=== PATIENT | female | born 1930 | race Hispanic/Latino ===

== ENCOUNTER 2021-06-24 11:46 | Inpatient (IN) | payer OTHER ==
[~2021-06-24] VITALS: Ht 160 cm; Wt 61.2 kg
[2021-06-24] MEDS ORDERED: ASPIRIN 81 MG CHEW TAB PO ONE (12:30)
[2021-06-24 13:03] LABS: BASOPHILS # (AUTO) 0.1 (0.0-0.1); BASOPHILS % 1.1 % (0.0-1.0); EOSINOPHILS # (AUTO) 0.3 (0.0-0.4); EOSINOPHILS % 4.6 % (0.0-6.0); HEMATOCRIT 40.1 % (34.2-44.1); HEMOGLOBIN 12.9 g/dL (12.0-16.0); LYMPHOCYTES # (AUTO) 2.6 (1.0-3.2); MEAN CORPUSCULAR HGB CONC 32.2 g/dL (31-35); MEAN CORPUSCULAR VOLUME 99.5 fL (81-99); MONOCYTES # (AUTO) 0.8 (0.2-0.8); NEUTROPHILS # (AUTO) 3.1 (2.1-6.9); NEUTROPHILS % 44.9 % (38.7-80.0); PLATELET COUNT 274 x10e3/uL (140-360); RED BLOOD COUNT 4.03 x10e6/uL (3.6-5.1); RED CELL DISTRIBUTION WIDTH 12.7 % (11.7-14.4)
[2021-06-24 13:16] LABS: ALBUMIN 3.8 g/dL (3.5-5.0); ALBUMIN/GLOBULIN RATIO 1.2 (0.8-2.0); ANION GAP 14.1 mmol/L (8-16); CALCIUM 9.1 mg/dL (8.4-10.2); CREATININE, SERUM 0.95 mg/dL (0.57-1.11); POTASSIUM 4.1 mmol/L (3.5-5.1)
[2021-06-24 13:25] LABS: CREATINE KINASE MB 1.6 ng/mL (0-5.0)
[2021-06-24] MEDS ORDERED: DILTIAZEM HCL 30 MG TAB PO ONE (14:15)
[2021-06-24] MEDS ORDERED: DILTIAZEM HCL 5 MG/ML 5 ML VIAL IV ONE (15:00)
[2021-06-24 18:54] LABS: CLARITY,URINE CLEAR (CLEAR); COLOR,URINE YELLOW (YELLOW); KETONES,URINE NEGATIVE (NEGATIVE); LEUKOCYTE ESTERASE ,URINE NEGATIVE (NEGATIVE); NITRITE,URINE NEGATIVE (NEGATIVE); PROTEIN,URINE DIPSTICK NEGATIVE (NEGATIVE); URINE UROBILINOGEN 0.2 mg/dL (0.2 - 1)
[2021-06-24] MEDS ORDERED: BENZONATATE 100 MG CAP PO PRN (19:00)
[2021-06-24 19:01] LABS: RBC,URINE 0-5 /HPF (0-5)
[2021-06-24] MEDS ORDERED: AMIODARONE HCL 150MG 100 ML IV SCH (19:15)
[2021-06-24] MEDS: METOPROLOL SUCCINATE 25 MG TAB XL PO SCH (19:18)
[2021-06-24] MEDS ORDERED: AMIODARONE HCL 150 MG in DEXTROSE 5% 100ML 100 ML IV SCH (19:45)
[2021-06-24 22:19] VITALS: BP 112/85
[2021-06-24 22:32] VITALS: BP 112/85
[2021-06-24] MEDS ORDERED: BENZONATATE200 MG PO (23:12)
[2021-06-24] MEDS ORDERED: AZITHROMYCIN250 MG PO (23:12)
[2021-06-24] MEDS ORDERED: LEVOTHYROXINE50 MCG PO (23:12)
[2021-06-24] MEDS ORDERED: CITALOPRAM10 MG/5 ML PO (23:12)
[2021-06-24 23:17] VITALS: BP 112/85
[2021-06-24 23:18] VITALS: BP 112/85
[2021-06-25 06:23] LABS: BASOPHILS # (AUTO) 0.1 (0.0-0.1); BASOPHILS % 1.1 % (0.0-1.0); EOSINOPHILS # (AUTO) 0.4 (0.0-0.4); EOSINOPHILS % 5.3 % (0.0-6.0); HEMATOCRIT 35.5 % (34.2-44.1); HEMOGLOBIN 12.8 g/dL (12.0-16.0); LYMPHOCYTES # (AUTO) 2.3 (1.0-3.2); LYMPHOCYTES % 35.5 % (18.0-39.1); MEAN CORPUSCULAR HEMOGLOBIN 36.1 pg (28-32); MEAN CORPUSCULAR HGB CONC 36.1 g/dL (31-35); MONOCYTES # (AUTO) 0.7 (0.2-0.8); MONOCYTES % 10.8 % (4.4-11.3); NEUTROPHILS # (AUTO) 3.1 (2.1-6.9); NEUTROPHILS % 46.8 % (38.7-80.0); PLATELET COUNT 186 x10e3/uL (140-360); RED BLOOD COUNT 3.55 x10e6/uL (3.6-5.1); RED CELL DISTRIBUTION WIDTH 13.5 % (11.7-14.4)
[2021-06-25 06:43] LABS: ALBUMIN 3.6 g/dL (3.5-5.0); ALBUMIN/GLOBULIN RATIO 1.2 (0.8-2.0); CHOL/HDL RATIO 3.1 (3.0-3.6); CREATININE, SERUM 0.81 mg/dL (0.57-1.11)
[2021-06-25 07:42] VITALS: BP 105/72
[2021-06-25 08:20] VITALS: BP 105/72
[2021-06-25] MEDS ORDERED: APIXAB 2.5 MG TABLET PO SCH (09:00)
[2021-06-25] MEDS: METOPROLOL SUCCINATE 25 MG TAB XL PO SCH (09:30)
[2021-06-25] MEDS ORDERED: LEVOTHYROXINE SODIUM 50 MCG TAB PO SCH (10:45)
[2021-06-25 11:23] VITALS: BP 116/80
[2021-06-25 15:43] VITALS: BP 112/64
[2021-06-25] MEDS ORDERED: TOPROL XL25 MG PO (16:00)
[2021-06-25] MEDS ORDERED: ELIQUIS2.5 MG PO (16:00)
[2021-06-26] MEDS ORDERED: LEVOTHYROXINE SODIUM 50 MCG TAB PO SCH (09:00)
== END 2021-06-25 17:37 | disposition home or self-care (01) | DRG 307 ==
LOC: EDBD 11:46 → ER 13:15 → ERHOLD 14:16 → MED/SURG 21:19
PROVIDERS: ADMIT Internal Medicine; ATTEND Internal Medicine
DX: I08.0 Rheumatic disorders of both mitral and aortic valves (principal); I48.92 Unspecified atrial flutter; I10 Essential (primary) hypertension; I48.91 Unspecified atrial fibrillation; Z87.891 Personal history of nicotine dependence; Z20.822 Contact with and (suspected) exposure to COVID-19; E03.9 Hypothyroidism, unspecified; F41.9 Anxiety disorder, unspecified; J40 Bronchitis, not specified as acute or chronic
CPT/HCPCS: 36415; 71045; 76705; 80053; 80061; 81001; 82550; 82553; 83036; 83880; 84443; 84484; 85025; 93005; 93306; 99284; U0002

== ENCOUNTER → 2021-09-08 | Outpatient (CLI) | payer MEDICARE ==
[~2021-09-08] MED LIST: AZITHROMYCIN250 MG PO; BENZONATATE200 MG PO; CITALOPRAM10 MG/5 ML PO; ELIQUIS2.5 MG PO; LEVOTHYROXINE50 MCG PO; TOPROL XL25 MG PO
== END ==
LOC: RAD 16:22
PROVIDERS: ATTEND Family Medicine
DX: R07.81 Pleurodynia (principal)
CPT/HCPCS: 71101